=== PATIENT | female | born 1955 | race Asian ===

== ENCOUNTER 2020-01-03 14:51 | Emergency (ER) | payer OTHER ==
[~2020-01-03] VITALS: Ht 157.5 cm; Wt 45.4 kg
[2020-01-03 14:57] VITALS: Ht 157.5 cm; Wt 45.4 kg
[2020-01-03 17:27] VITALS: BP 159/75
== END 2020-01-03 17:23 | disposition home or self-care (01) ==
LOC: ED 14:51
DX: R04.0 Epistaxis (principal); Z88.0 Allergy status to penicillin; Z94.0 Kidney transplant status

== ENCOUNTER 2020-01-03 17:52 | Emergency (ER) | payer OTHER ==
[~2020-01-03] VITALS: Ht 157.5 cm; Wt 45.4 kg
[2020-01-03 18:01] VITALS: Ht 157.5 cm; Wt 45.4 kg
[2020-01-03 19:32] VITALS: BP 179/86
== END 2020-01-03 19:32 | disposition home or self-care (01) ==
LOC: ED 17:52
DX: R04.0 Epistaxis (principal); I10 Essential (primary) hypertension
CPT/HCPCS: J3490